=== PATIENT | male | born 1940 | race Caucasian/White ===

== ENCOUNTER 2017-07-26 09:56 | Inpatient (IN) | payer MEDICARE, BC ==
[~2017-07-26] VITALS: Ht 177.8 cm; Wt 83.8 kg
[~2017-07-26 09:56] MED LIST: CRESTOR5 MG PO; FERROUS SULFATE65 MG PO; FLOMAX 0.40.4 MG/CAP PO; NORCO 325 MG-7.1 TAB PO; PROTONIX 40MG T40 MG PO; ROXICODONE 55 MG/TAB PO; TYLENOL 325MG325 MG; TYLENOL 500MG500 MG PO; VISION VITAMINS1 TA1 PO
[2017-10-08] VITALS (12 sets, daily range): BP systolic 90–151; BP diastolic 56–93; PULSE 48–129; TEMP 96.8–98.1
[2017-10-08] MEDS ORDERED: XARELTO15 MG PO (03:38)
[2017-10-08] MEDS ORDERED: VIAGRA50 M1 PO (03:39)
[2017-10-08] MEDS ORDERED: B-121000 MCG PO (05:35)
[2017-10-08 07:42] LABS: INFLUENZA A NEGATIVE; INFLUENZA B NEGATIVE
[2017-10-09 03:54] VITALS: BP 110/64; PULSE 61; TEMP 97.5
[2017-10-09 06:56] LABS: HEMATOCRIT 32.2 % (42.0-52.0); HEMOGLOBIN 10.9 g/dl (13.5-18.0)
[2017-10-09 07:41] VITALS: BP 125/75; PULSE 71; TEMP 97.6
[2017-10-09 11:24] VITALS: BP 123/85; PULSE 65; TEMP 98.1
[2017-10-09] MEDS ORDERED: XARELTO15 MG PO (12:23)
[2017-10-09 15:25] VITALS: BP 109/67; PULSE 67; TEMP 98
[2017-10-09 20:26] VITALS: BP 111/53; PULSE 72; TEMP 97.7
[2017-10-10 00:45] VITALS: BP 122/72; PULSE 71; TEMP 98.2
[2017-10-10 04:32] VITALS: BP 110/75; PULSE 73; TEMP 98.8
[2017-10-10 07:42] VITALS: BP 137/83; PULSE 69; TEMP 98.1
[2017-10-10] MEDS ORDERED: NORCO 325 MG-7.1 TAB PO (10:01)
[2017-10-10] MEDS ORDERED: ROXICODONE 55 MG/TAB PO (10:03)
[2017-10-10] MEDS ORDERED: XARELTO10 MG PO (10:04)
[2017-10-10 11:18] VITALS: BP 90/61; PULSE 67; TEMP 98
[2017-10-10 11:31] VITALS: BP 105/53
== END 2017-10-10 14:33 | disposition home or self-care (01) | DRG 470 ==
LOC: JCC 10-08 05:04
PROVIDERS: Family Medicine; Orthopaedic Surgery; Urology
PROC: 0SRD0J9 Replacement of Left Knee Joint with Synthetic Substitute, Cemented, Open Approach (ICD-10-PCS; principal; 2017-10-08 07:30)
PROC: 0T9B80Z Drainage of Bladder with Drainage Device, Via Natural or Artificial Opening Endoscopic (ICD-10-PCS; 2017-10-08 07:30)
DX: M17.12 Unilateral primary osteoarthritis, left knee (principal); N13.8 Other obstructive and reflux uropathy; Z85.72 Personal history of non-Hodgkin lymphomas; I25.10 Atherosclerotic heart disease of native coronary artery without angina pectoris; I48.0 Paroxysmal atrial fibrillation; Z79.01 Long term (current) use of anticoagulants; J06.9 Acute upper respiratory infection, unspecified; N40.1 Benign prostatic hyperplasia with lower urinary tract symptoms
CPT/HCPCS: 99222; 99232-AI; A4314; A9284; C1713; C1776; J0690; J1100; J2250; J2704; J2765; J3010; J7120

== ENCOUNTER → 2017-09-27 | Outpatient (CLI) | payer MEDICARE, BC ==
[2017-09-27 14:12] LABS: HIV 1/2 Antibodies Non-Reactive; HIV-1p24 Antigen Non-Reactive
[2017-09-28 00:13] LABS: HEPATITIS B SURFACE ANTIBODY <2.0 (())
== END ==
LOC: COL.LAB 13:08
PROVIDERS: Orthopaedic Surgery
DX: Z01.812 Encounter for preprocedural laboratory examination (principal); M17.12 Unilateral primary osteoarthritis, left knee